=== PATIENT | female | born 1940 | race African-American/Black ===

== ENCOUNTER 2018-08-20 20:15 | Inpatient (IN) | payer MEDICARE, OTHER ==
[~2018-08-20] VITALS: Ht 165.1 cm; Wt 76.2 kg
[~2018-08-20 20:15] MED LIST: GABA300C PO; TRAM50TA3 PO
[2018-08-20] MEDS ORDERED: ASPIRIN 81MG TABLET PO ONE (22:30)
[2018-08-21 00:01] LABS: EOSINOPHILS % 2.2 % (0.0-5.0); HEMATOCRIT. 36.3 % (36.0-48.0); HEMOGLOBIN. 11.6 g/dL (12.0-16.0); LYMPHOCYTES % 17.1 % (20.0-50.0); MEAN CORPUSCULAR HEMOGLOBIN 28.3 pg (28.0-32.0); MEAN CORPUSCULAR VOLUME 88.6 fL (81.0-99.0); MEAN PLATELET VOLUME 9.2 fl (7.4-10.4); MONOCYTES % 3.3 % (2.0-8.0); NEUTROPHILS % 76.4 % (40.0-76.0); PLATELET 385 x1000/uL (130-400); RED BLOOD CELL COUNT 4.09 mill/uL (4.2-5.4); RED CELL DISTRIBUTION WIDTH 22.5 % (11.6-14.6)
[2018-08-21 00:02] LABS: CHLORIDE 106 mEq/L (98-107)
[2018-08-21 00:18] LABS: INR 1.1; PARTIAL THROMBOPLASTIN TIME 34.5 sec (23.4-31.0); PROTHROMBIN TIME 11.2 sec (9.1-11.1)
[2018-08-21 00:35] LABS: CLARITY URINE CLEAR (CLEAR); COLOR URINE YELLOW (YELLOW); KETONES URINE NEGATIVE (NEGATIVE); LEUKOCYTE ESTERASE URINE TRACE (NEGATIVE); NITRITE URINE NEGATIVE (NEGATIVE); OCCULT BLOOD URINE NEGATIVE (NEGATIVE); PH URINE 5.5 (4.5-8.0); PROTEIN URINE NEGATIVE (NEGATIVE); SPECIFIC GRAVITY URINE 1.015 (1.005-1.030); UROBILINOGEN URINE 0.2 E.U./dL (0.2-1.0)
[2018-08-21 02:11] LABS: PLATELET ESTIMATE NORMAL
[2018-08-21] MEDS ORDERED: CLONIDINE 0.1MG TABLET PO PRN (07:30)
[2018-08-21] MEDS ORDERED: ACETAMINOPHEN 325MG TABLET PO PRN (07:30)
[2018-08-21] MEDS ORDERED: POTASSIUM CHLORIDE 20MEQ TABLET SR PO PRN (07:30)
[2018-08-21] MEDS ORDERED: ONDANSETRON HCL 4MG/2ML INJ IV PRN (07:30)
[2018-08-21 09:17] LABS: BASOPHILS % 0.5 % (0.0-2.0); EOSINOPHILS % 2.5 % (0.0-5.0); HEMOGLOBIN. 11.8 g/dL (12.0-16.0); LYMPHOCYTES % 19.3 % (20.0-50.0); MEAN CORPUSCULAR HEMOGLOBIN 28.5 pg (28.0-32.0); MEAN CORPUSCULAR VOLUME 89.7 fL (81.0-99.0); MEAN PLATELET VOLUME 9.2 fl (7.4-10.4); MONOCYTES % 3.7 % (2.0-8.0); PLATELET 335 x1000/uL (130-400); RED BLOOD CELL COUNT 4.13 mill/uL (4.2-5.4)
[2018-08-21 09:26] LABS: CHLORIDE 107 mEq/L (98-107)
[2018-08-21 10:30] VITALS: BP 145/77
[2018-08-21 12:00] VITALS: BP 134/63
[2018-08-21 16:00] VITALS: BP 120/70
[2018-08-21] MEDS: APIXABAN 5 MG TABLET PO SCH (17:31)
[2018-08-21 20:00] VITALS: BP_SYST 130; BP_SYST 136; BP_SYST 157; BP_DIAS 69; BP_DIAS 72
[2018-08-21 20:22] LABS: *AMPHETAMINES SCREEN URINE NEGATIVE (NEGATIVE); *BARBITURATES SCREEN URINE NEGATIVE (NEGATIVE); *BENZODIAZEPINES SCREEN URINE NEGATIVE (NEGATIVE); *COCAINE SCREEN URINE NEGATIVE (NEGATIVE); METHADONE URINE SCREEN NEGATIVE (NEGATIVE); OPIATES URINE SCREEN NEGATIVE (NEGATIVE)
[2018-08-21 20:23] LABS: CANNABINOID URINE SCREEN NEGATIVE (NEGATIVE); PHENCYCLIDINE URINE SCREEN NEGATIVE (NEGATIVE)
[2018-08-21] MEDS ORDERED: GABAPENTIN 300MG CAPSULE PO SCH (21:00)
[2018-08-21] MEDS ORDERED: ATORVASTATIN CALCIUM 20MG TABLET PO SCH (21:00)
[2018-08-22] VITALS: BP 126/75
[2018-08-22 04:00] VITALS: BP 131/90
[2018-08-22 08:20] LABS: BASOPHILS % 0.6 % (0.0-2.0); EOSINOPHILS % 3.1 % (0.0-5.0); HEMATOCRIT. 35.9 % (36.0-48.0); HEMOGLOBIN. 11.7 g/dL (12.0-16.0); LYMPHOCYTES % 25.5 % (20.0-50.0); MEAN CORPUSCULAR HEMOGLOBIN 28.9 pg (28.0-32.0); MEAN CORPUSCULAR VOLUME 88.3 fL (81.0-99.0); MEAN PLATELET VOLUME 9.3 fl (7.4-10.4); MONOCYTES % 3.9 % (2.0-8.0); NEUTROPHILS % 66.9 % (40.0-76.0); PLATELET 328 x1000/uL (130-400); RED BLOOD CELL COUNT 4.06 mill/uL (4.2-5.4); RED CELL DISTRIBUTION WIDTH 22.8 % (11.6-14.6)
[2018-08-22] MEDS: APIXABAN 5 MG TABLET PO SCH ×2 (08:30→17:52)
[2018-08-22 08:32] LABS: CHLORIDE 107 mEq/L (98-107)
[2018-08-22 16:00] VITALS: BP 128/72
[2018-08-22 16:34] VITALS: BP 126/71
[2018-08-22 20:12] VITALS: BP 160/72
== END 2018-08-22 19:28 | disposition home or self-care (01) | DRG 312 ==
LOC: ER 20:15 → 7WST 08-21 02:10 → EDBEDREQ 08-21 02:17 → EDBEDREQTM 08-21 02:17 → ENRESERV 08-21 09:05 → 7WST 08-21 11:01
PROVIDERS: ADMIT Emergency Medicine; ATTEND Emergency Medicine
DX: I95.1 Orthostatic hypotension (principal); E44.1 Mild protein-calorie malnutrition; N39.0 Urinary tract infection, site not specified; I50.40 Unspecified combined systolic (congestive) and diastolic (congestive) heart failure; D64.9 Anemia, unspecified; E78.5 Hyperlipidemia, unspecified; I11.0 Hypertensive heart disease with heart failure; I48.0 Paroxysmal atrial fibrillation; I45.10 Unspecified right bundle-branch block; M19.90 Unspecified osteoarthritis, unspecified site; M10.9 Gout, unspecified; Z86.718 Personal history of other venous thrombosis and embolism; Z82.0 Family history of epilepsy and other diseases of the nervous system; Z68.28 Body mass index [BMI] 28.0-28.9, adult; Z88.8 Allergy status to other drugs, medicaments and biological substances; Z91.018 Allergy to other foods
CPT/HCPCS: 36415; 71045; 80048; 80305; 83880; 84443; 84484; 85379; 93005; 93306; 93880; 99285